=== PATIENT | female | born 2000 | race Caucasian/White ===

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

== ENCOUNTER 2022-03-26 11:58 | Emergency (ER) | payer OTHER ==
[~2022-03-26] VITALS: Ht 152.4 cm; Wt 99.8 kg
[2022-03-26 11:58] VITALS: BP_SYST 139
[~2022-03-26 11:58] MED LIST: IBUP-1969 PO
--- NOTE | 2022-03-26 11:58 | NUR ---
BROUGHT BACK TO BED #7 AND TRIAGED. REPORT GIVEN TO TYLER
[2022-03-26] MEDS ORDERED: NACL 0.9% 1,000 ML IV ONE (12:15)
[2022-03-26] MEDS ORDERED: MORPHINE 2 MG/ML INJ. SYRINGE IVP ONE (12:15)
[2022-03-26] MEDS ORDERED: METOCLOPRAMIDE HCL 10 MG/2 ML VIAL IVP ONE (12:15)
[2022-03-26] MEDS ORDERED: ONDANSETRON HCL 4 MG/2 ML VIAL IVP ONE (12:15)
[2022-03-26] MEDS ORDERED: PANTOPRAZOLE SODIUM 40 MG/VIAL (PROTONIX) IVP ONE (12:15)
[2022-03-26 12:49] LABS: BASOPHILS # (AUTO) 0.2 K/uL (0.0-0.2); BASOPHILS % (AUTO) 1.2 % (0.0-2.0); CALCIUM 8.8 mg/dL (8.4-11.0); CREATININE 0.96 mg/dL (0.55-1.30); EOSINOPHILS # (AUTO) 0.1 K/uL (0.0-0.4); HEMATOCRIT 37.4 % (36-48); LYMPHOCYTES # (AUTO) 1.1 K/uL (1.0-5.5); LYMPHOCYTES % (AUTO) 7.8 % (20.5-51.5); MEAN CORPUSCULAR HEMOGLOBIN 23 pg (27-31); MEAN CORPUSCULAR HGB CONC 32 % (32-36); MEAN CORPUSCULAR VOLUME 72 fL (79.0-98.0); MONOCYTES # (AUTO) 0.5 K/uL (0.0-1.0); MONOCYTES % (AUTO) 3.6 % (1.7-9.3); NEUTROPHILS # (AUTO) 12.5 K/uL (1.8-7.7); NEUTROPHILS % (AUTO) 86.4 % (40.0-70.0); PLATELET COUNT (AUTO) 317 K/uL (130-430); POTASSIUM 3.6 mmol/L (3.5-5.1); RED BLOOD CELL COUNT(AUTO) 5.18 MIL/uL (4.2-6.2); RED CELL DISTRIBUTION WIDTH 14.6 % (9.0-15.0); WHITE BLOOD COUNT (AUTO) 14.5 K/uL (4.5-11.0)
[2022-03-26 13:04] LABS: ALBUMIN 4.2 g/dL (3.4-4.8); TOTAL BILIRUBIN 0.4 mg/dL (0.0-1.0)
[2022-03-26 13:17] LABS: BILIRUBIN,URINE NEGATIVE (NEGATIVE); BLOOD, URINE 2+ (NEGATIVE); COLOR,URINE YELLOW (YELLOW); GLUCOSE,URINE NEGATIVE (NEGATIVE); KETONES,URINE TRACE (NEGATIVE); LEUKOCYTE ESTERASE ,URINE TRACE (NEGATIVE); NITRITE, URINE NEGATIVE (NEGATIVE); PROTEIN URINE 1+ (NEGATIVE); UROBILINOGEN,URINE 0.2 (0.2-1.0)
[2022-03-26 13:26] LABS: CLARITY/URINE HAZY (CLEAR)
[2022-03-26 13:27] LABS: BACTERIA,URINE MODERATE /HPF (None Seen); MUCUS,URINE 2+ /LPF (None Seen)
--- NOTE | 2022-03-26 13:30 | NUR ---
Pt brought by mother, A&Ox4, pt presents to ER with R upper quadrant abdominal pain, N/V and petechiae on abdominal area, VSS, respirations are even and unlabored, pt afebrile, will cont to monitor.
--- NOTE | 2022-03-26 15:31 | NUR ---
Luan OROZCO and ED physician at pt bedside.
--- NOTE | 2022-03-26 15:46 | NUR ---
Pt transported to radiology dept for CT exam. Pt transfered back to ED in stable condition.
[2022-03-26] MEDS ORDERED: ONDA-8 TL (17:38)
[2022-03-26] MEDS ORDERED: ACET325T PO (17:38)
--- NOTE | 2022-03-26 17:55 | NUR ---
d Patient given written and verbal discharge instructions and verbalizes understanding. ER MD discussed with patient the results and treatment provided. Patient in stable condition. ID arm band removed. IV catheter removed intact and dressing applied, no active bleeding. Rx of zofran and tylenol given. Patient educated on pain management and to follow up with PMD. Pain Scale . Opportunity for questions provided and answered. Medication side effect fact sheet provided. Pt D/C in no acute distress Aox4 GCS 15. ambulated out of ED accompanied by mother.
[2022-03-26 17:57] VITALS: BP_SYST 122
== END 2022-03-26 17:57 | disposition home or self-care (01) ==
LOC: SED 11:58
DX: R74.01 Elevation of levels of liver transaminase levels (principal); R16.0 Hepatomegaly, not elsewhere classified; K59.00 Constipation, unspecified; R11.10 Vomiting, unspecified; R10.31 Right lower quadrant pain; Z79.899 Other long term (current) drug therapy; Z20.822 Contact with and (suspected) exposure to COVID-19
CPT/HCPCS: 36415; 74176; 76376; 80053; 81000; 81025; 83605; 83690; 84702; 85025; 87086; 87426; 96361; 96374; 96375; 99284; C9113; J2270; J2405; J2765; J7030

== ENCOUNTER 2022-07-05 01:32 | Emergency (ER) | payer OTHER ==
[~2022-07-05] VITALS: Ht 152.4 cm; Wt 95.3 kg
[~2022-07-05 01:32] MED LIST changes: +ACET325T PO; +ONDA-8 TL
--- NOTE | 2022-07-05 01:45 | NUR ---
Swabbed nares to test for Covid 19, sent to lab
[2022-07-05 01:48] VITALS: BP_SYST 140
--- NOTE | 2022-07-05 01:48 | NUR ---
Patient came in to the ER with on and off abdominal pain described as cramping 7/10 PS. No radiation to the back. Denies urinary frequency urgency or dysuria. Last menstrual period 2 weeks ago. Patient was tested positive of Covid 19 last Thursday and symptoms seem to be correlated with Paxlovid therapy. Reports episodes of N/V/D. Patient respirations even and unlabored. Awaiting ER MD to evaluate and treat.
--- NOTE | 2022-07-05 01:50 | NUR ---
Patient triaged and placed in tent. VS checked and patient appears in no acute distress at this time. Accompanied by self , awaiting available bed, and MD notified of need for MSE.
--- NOTE | 2022-07-05 02:17 | NUR ---
LAB DRAWING BLOOD AT THIS TIME.
[2022-07-05 02:36] LABS: CALCIUM 9.3 mg/dL (8.4-11.0); CREATININE 0.92 mg/dL (0.55-1.30); POTASSIUM 3.6 mmol/L (3.5-5.1)
[2022-07-05 02:41] LABS: BASOPHILS % (AUTO) 0.3 % (0.0-2.0); EOSINOPHILS # (AUTO) 0.1 K/uL (0.0-0.4); HEMATOCRIT 41.5 % (36-48); HEMOGLOBIN 13.5 g/dL (12.0-16.0); LYMPHOCYTES # (AUTO) 1.2 K/uL (1.0-5.5); LYMPHOCYTES % (AUTO) 12.9 % (20.5-51.5); MEAN CORPUSCULAR HEMOGLOBIN 23 pg (27-31); MEAN CORPUSCULAR HGB CONC 33 % (32-36); MEAN CORPUSCULAR VOLUME 71 fL (79.0-98.0); MONOCYTES # (AUTO) 0.5 K/uL (0.0-1.0); MONOCYTES % (AUTO) 5.8 % (1.7-9.3); NEUTROPHILS # (AUTO) 7.5 K/uL (1.8-7.7); PLATELET COUNT (AUTO) 296 K/uL (130-430); RED BLOOD CELL COUNT(AUTO) 5.87 MIL/uL (4.2-6.2); RED CELL DISTRIBUTION WIDTH 15.9 % (9.0-15.0); WHITE BLOOD COUNT (AUTO) 9.3 K/uL (4.5-11.0)
[2022-07-05 02:42] LABS: ALBUMIN 4.1 g/dL (3.4-4.8); TOTAL BILIRUBIN 0.3 mg/dL (0.0-1.0)
[2022-07-05 04:10] LABS: BILIRUBIN,URINE NEGATIVE (NEGATIVE); BLOOD, URINE NEGATIVE (NEGATIVE); CLARITY/URINE CLEAR (CLEAR); COLOR,URINE YELLOW (YELLOW); GLUCOSE,URINE NEGATIVE (NEGATIVE); KETONES,URINE TRACE (NEGATIVE); LEUKOCYTE ESTERASE ,URINE NEGATIVE (NEGATIVE); NITRITE, URINE NEGATIVE (NEGATIVE); PROTEIN URINE NEGATIVE (NEGATIVE); UROBILINOGEN,URINE 0.2 (0.2-1.0)
--- NOTE | 2022-07-05 04:25 | NUR ---
DR. ESCOBEDO AT BEDSIDE.
[2022-07-05] MEDS ORDERED: NACL 0.9% 1,000 ML IV ONE (04:30)
[2022-07-05] MEDS ORDERED: MORPHINE 4 MG INJ. 4 MG/ML VIAL IVP ONE (04:30)
[2022-07-05] MEDS ORDERED: PROCHLORPERAZINE EDISYLATE 10 MG/2 ML VIAL IVP ONE (04:30)
[2022-07-05] MEDS ORDERED: PANTOPRAZOLE SODIUM 40 MG/VIAL (PROTONIX) IVP ONE (04:30)
[2022-07-05] MEDS ORDERED: MAG-AL HYDROX/SIMETH 30 ML UDC PO ONE (05:30)
[2022-07-05] MEDS ORDERED: LIDOCAINE VISCOUS 2%, 15 ML UDC MM ONE (05:30)
[2022-07-05] MEDS ORDERED: FAMO20TA8 PO (06:17)
[2022-07-05] MEDS ORDERED: PROM25TA15 PO (06:17)
[2022-07-05] MEDS ORDERED: [UNRECOGNIZED DRUG - CODE] PO (06:17)
[2022-07-05 06:45] VITALS: BP_SYST 128
--- NOTE | 2022-07-05 06:45 | NUR ---
Patient given written and verbal discharge instructions and verbalizes understanding. ER MD discussed with patient the results and treatment provided. Patient in stable condition. ID arm band removed. IV catheter removed intact and dressing applied, no active bleeding. Rx of Famotidine, hyoscyamine and promethazine were sent to pharmacy of choice by ER MD. Patient educated on pain management and to follow up with PMD. Pain Scale 01/0. Opportunity for questions provided and answered.
== END 2022-07-05 06:45 | disposition home or self-care (01) ==
LOC: SED 01:32
DX: U07.1 COVID-19 (principal); R10.33 Periumbilical pain; T43.225A Adverse effect of selective serotonin reuptake inhibitors, initial encounter; Z79.899 Other long term (current) drug therapy; Y92.89 Other specified places as the place of occurrence of the external cause
CPT/HCPCS: 99284; 96374; 96375; 96361; 87426; 80053; 83690; 85025; 36415; 81025; 81003; J2001; C9113; J0780; J2270; J7030